=== PATIENT | male | born 1945 | race Caucasian/White ===

== ENCOUNTER 2017-03-10 11:26 | Day surgery (SDC) | payer OTHER, BC ==
[~2017-03-10 11:26] MED LIST: Acetaminophen TAB* 325 MG PO PRN; Buffered Lidocaine 0.9% SYRIN* 5 ML/SYR SYRINGE INTRADERM ONE
[2017-03-10] MEDS ORDERED: Tetracaine 0.5% OPTH.SOL 4 ML* 1 DROP BTL ONE (13:26)
[2017-03-10] MEDS ORDERED: Phenylephrine 2.5% OPTH.SOL* 2 ML BTL ONE (13:26)
[2017-03-10] MEDS ORDERED: Neomycin/Polymy/Dex OPHTH.OIN* 3.5 GM ONE (13:26)
[2017-03-10] MEDS ORDERED: Tropicamide 1% OPTH.SOL* BTL ONE (13:26)
[2017-03-10] MEDS ORDERED: Ketorolac 0.5% OPHTH (NF) 0.5 % 5 ML BTL ONE (13:26)
[2017-03-10] MEDS ORDERED: Cyclopentolate 1% OPTH.SOL* 2 ML BTL ONE (13:26)
[2017-03-10] MEDS ORDERED: Lidocaine 1% MPF* 2 ML VIAL ONE (13:26)
[2017-03-10] MEDS ORDERED: Buffered Lidocaine 0.9% SYRIN* 5 ML/SYR SYRINGE ONE (13:27)
[2017-03-10] MEDS ORDERED: Midazolam* 1 MG/ML 2 ML VIAL (2 MG) ONE ×2 (13:29→13:49)
[2017-03-10] MEDS ORDERED: Phenylephr/Ketorolac 1%/0.3% OPH DROP BTL ONE (14:12)
[2017-03-10 14:37] VITALS: BP 148/89
--- NOTE | 2017-03-11 05:06 | OP ---
DATE OF OPERATION: 03/10/17 [facility] DATE OF : 47 SURGEON: Dr. Osmani Mercado. [employer]ON FOREMAN/SUPERINTENDANT: None. ANESTHESIOLOGIST: Dr. Bowers ANESTHESIA: Topical with intravenous sedation. PRE-OP DIAGNOSIS: Cataract, right eye. POST-OP DIAGNOSIS: Cataract, right eye. OPERATIVE PROCEDURE: Phacoemulsification and cataract extraction with posterior chamber intraocular lens implant, right eye. COMPLICATIONS: None. BLOOD LOSS: None. DESCRIPTION OF PROCEDURE: The patient was brought to the operating room and received a small amount of intravenous sedation. A drop of Tetracaine was placed in his right eye. He was prepped and draped in the usual sterile fashion for ophthalmic surgery and attention was directed to the right eye where a speculum was placed. A paracentesis was created at the 11 o'clock position and 0.1 cc of 1 percent preservative-free Lidocaine was injected into the anterior chamber followed by DisCoVisc. The eye was digitally stabilized while a 2.75 mm keratome was used to create a triplanar clear corneal incision at the 9 o'clock position. A continuous curvilinear capsulorrhexis was created with a cystotome and Utrata forceps. BSS on a cannula was used to hydrodissect the lens from the capsule. Phacoemulsification was performed in a divide-and- conquer technique to create four fragments which were removed. Residual cortical material was removed with irrigation and aspiration. DisCoVisc was used to inflate the capsular bag and an AU00T0 22.5 diopter lens was folded and inserted into the capsular bag. DisCoVisc was removed using irrigation and aspiration. BSS on a cannula was used to hydrate the corneal stroma and seal the wound. At the end of the case the pupil was round and the lens was centered. The eye was of normal pressure and the wound was water tight. The speculum was removed and topical Maxitrol ointment was placed on the surface of the eye. The eye was closed, patched and shielded and the patient was sent to the recovery room in stable condition with post operative instructions and follow-up appointment given. [id number]/[facility] #: [id number] MTDD
== END 2017-03-10 14:33 | disposition home or self-care (01) ==
LOC: OREAST 11:26
PROVIDERS: ATTEND Ophthalmology
DX: H25.13 Age-related nuclear cataract, bilateral (principal); I10 Essential (primary) hypertension; G43.909 Migraine, unspecified, not intractable, without status migrainosus; K21.9 Gastro-esophageal reflux disease without esophagitis; Z91.041 Radiographic dye allergy status; Z87.891 Personal history of nicotine dependence
CPT/HCPCS: A9270-GY; C9447; J2250; V2632

== ENCOUNTER 2017-03-17 07:31 | Day surgery (SDC) | payer OTHER, BC ==
[~2017-03-17 07:31] MED LIST changes: +Phenylephr/Ketorolac 1%/0.3% OPH DROP BTL ONE
[2017-03-17] MEDS ORDERED: fentaNYL* 50 MCG/ML 2 ML VIAL (100 MCG VIAL) ONE (07:56)
[2017-03-17] MEDS ORDERED: Midazolam* 1 MG/ML 5 ML VIAL (5 MG) ONE (07:56)
[2017-03-17 09:57] VITALS: BP 151/85
[2017-03-17] MEDS ORDERED: Flurbiprofen 0.03% OPTH.SOL* 2.5 ML BTL ONE (11:14)
[2017-03-17] MEDS ORDERED: Cyclopentolate 1% OPTH.SOL* 2 ML BTL ONE (11:14)
[2017-03-17] MEDS ORDERED: Lidocaine 1% MPF* 2 ML VIAL ONE (11:14)
[2017-03-17] MEDS ORDERED: Neomycin/Polymy/Dex OPHTH.OIN* 3.5 GM ONE (11:14)
[2017-03-17] MEDS ORDERED: Phenylephrine 2.5% OPTH.SOL* 2 ML BTL ONE (11:14)
[2017-03-17] MEDS ORDERED: Tropicamide 1% OPTH.SOL* BTL ONE (11:14)
[2017-03-17] MEDS ORDERED: Buffered Lidocaine 0.9% SYRIN* 5 ML/SYR SYRINGE ONE (11:15)
[2017-03-17] MEDS ORDERED: Tetracaine 0.5% OPTH.SOL 4 ML* 1 DROP BTL ONE (11:15)
--- NOTE | 2017-03-17 19:19 | OP ---
OPERATIVE REPORT: DATE OF OPERATION: 03/17/17 DATE OF : 47 SURGEON: Dr. Osmani Mercado. SMOKE TESTER: None. ANESTHESIA: Topical with intravenous sedation. PRE-OP DIAGNOSIS: Cataract, left eye. POST-OP DIAGNOSIS: Cataract, left eye. OPERATIVE PROCEDURE: Phacoemulsification and cataract extraction with posterior chamber intraocular lens implant, left eye. COMPLICATIONS: None. BLOOD LOSS: None. OPERATIVE FINDINGS: The patient was brought to the operating room and received a small amount of in travenous sedation. A drop of Tetracaine was placed in his left eye. He was prepped and draped in the usual sterile fashion for ophthalmic surgery and attention was directed to the left eye where a speculum was placed. A paracentesis was created at the 5 o'clock position and 0.1 cc of 1 percent p reservative-free Lidocaine was injected into the anterior chamber followed by DisCoVisc. The eye wa s digitally stabilized while a 2.75 mm keratome was used to create a triplanar clear corneal incisio n at the 3 o'clock position. A continuous curvilinear capsulorrhexis was created with a cystotome a nd Utrata forceps. BSS on a cannula was used to hydrodissect the lens from the capsule. Phacoemuls ification was performed in a [id number] technique to create four fragments which were remove d. Residual cortical material was removed with irrigation and aspiration. DisCoVisc was used to inf late the capsular bag and an AU00T0 21.0 diopter lens was folded and inserted into the capsular bag. DisCoVisc was removed using irrigation and aspiration. BSS on a cannula was used to hydrate the c orneal stroma and seal the wound. At the end of the case the pupil was round and the lens was cente red. The eye was of normal pressure and the wound was water tight. The speculum was removed and top ical Maxitrol ointment was placed on the surface of the eye. The eye was closed, patched and shield ed and the patient was sent to the recovery room in stable condition with post operative instruction s and follow-up appointment given. [id number] #: [id number]
== END 2017-03-17 10:05 | disposition home or self-care (01) ==
LOC: OREAST 07:31
PROVIDERS: ATTEND Ophthalmology
DX: H25.12 Age-related nuclear cataract, left eye (principal); I10 Essential (primary) hypertension; K21.9 Gastro-esophageal reflux disease without esophagitis; Z87.891 Personal history of nicotine dependence
CPT/HCPCS: A9270-GY; C9447; J2250; J3010; V2632